=== PATIENT | male | born 1995 | race Caucasian/White ===

== ENCOUNTER 2022-09-13 18:07 | Emergency (ER) | payer BC, SELFPAY ==
--- NOTE | 2022-09-13 18:12 | ED.EAR ---
HPI - Ear Problem General Chief complaint: Ear Stated complaint: lt ear bleeding Time Seen by Provider: 09/13/22 18:48 Source: patient and RN notes reviewed Mode of arrival: ambulatory Limitations: no limitations History of Present Illness HPI Narrative: 27-year-old male presents with concern from bleeding from his left ear. Reports this morning he was cleaning his ear with Q-tip when he noticed blood coming the ear. He denies any pain, hearing changes. Reports a small amount of blood trickling from the ear throughout the day intermittently. Denies gross bleeding MD Complaint: ear discharge Related Data Allergies Allergy/AdvReac Type Severity Reaction Status Date / Time No Known Allergies Allergy Verified 09/13/22 18:18 Review of Systems Review of Systems: CONSTITUTIONAL: Denies malaise, chills, sweats, or fever. ENT: Denies rhinorrhea, congestion, sinus pain, and sore throat. Reports bleeding from left ear CARDIOVASCULAR: Denies chest pain, palpitations, or edema. SKIN: Denies rash or itching. All systems reviewed & are unremarkable except as noted in HPI and below PMFSH Comments At time of signature, agree with nursing past medical, surgical, social and family history. There is no relevant family history pertinent to the presenting complaint Exam Narrative: GENERAL: Well-appearing, well-nourished, and in no acute distress. HEAD: Normocephalic EYES: PERRLA, conjunctivae clear ENT: Nares clear. Mucous membranes moist. TM pearly olivia with sharp light reflex bilaterally; no tragal tenderness. Left EAC with blood clot noted, after clot was removed abrasion to the bottom of the ear canal noted. NECK: Supple. CHEST: No respiratory distress, speaks in full sentences. HEART: Regular rate and rhythm. SKIN: Warm, dry, no rash. NEURO: Alert and oriented x3. PSYCH: Normal mood and affect Course Course Emergency Course: Patient is aware of diagnosis, understands and agrees to treatment plan. Anticipatory guidance given. Patient agrees to follow-up as directed and is aware of reasons to seek care at the emergency department. Portions of this record may have been created with voice recognition software Level of Care: Express Care Visit Vital Signs Vital signs: Reviewed. Procedures Other Procedure Procedure 1: Other Procedure: Elephant ear with warm water used to flush out clotted blood Medical Decision Making MDM Narrative Medical decision making narrative: Differential diagnosis considered: Jackson virus, strep pharyngitis, allergic rhinitis, upper respiratory tract infection, sinusitis, rhinosinusitis, nasopharyngitis. viral pharyngitis, otitis media, otitis externa, otitis effusion, cerumen impaction, foreign body. Exam findings show no acute concerns or changes; patient is non-toxic appearing and is in no distress. Patient is appropriate for outpatient treatment and follow-up. Critical Care Time Critical Care Time Critical Care Time: No Discharge Plan Discharge Clinical Impression: Abrasion of left ear canal Patient Disposition: Home, Self-Care Condition: Stable Instructions: How to Use Ear Drops (ED) Additional Instructions: Use ear drops as directed. Avoid putting any substances other than the ear drops, Q-tips or anything else in her ear. You may have some clotting and residual bleeding. If you have any large amount of bleeding, hearing changes, pain you should be re-evaluated. If you have any urgent concerns please go to the emergency room Prescriptions: New [id number] 3.5-10,000-1 mg/mL-unit/mL-% drops,suspension 4 drop LEFT EAR Q8H 7 Days Qty: 10 0RF Follow-up/Referrals: Elinor,Miracle Jenkins MD [Primary Care Provider] - Time of Disposition: 18:47
[2022-09-13 18:22] VITALS: BP 119/73; PULSE 76; RESP 16; TEMP 36.8; O2SAT 100
== END 2022-09-13 18:53 | disposition home or self-care (01) ==
PROVIDERS: Emergency Provider Nurse Practitioner; PCP Internal Medicine Rheumatology
DX: S00.412A Abrasion of left ear, initial encounter (principal); X58.XXXA Exposure to other specified factors, initial encounter
CPT/HCPCS: 99213; G0463